=== PATIENT | male | born 1960 | race Caucasian/White ===

== ENCOUNTER 2018-05-13 06:39 | Inpatient (IN) ==
[2018-05-13] MEDS ORDERED: ALBUTEROL/IPRATROPIUM 3 ML NEB RESP TX STA ×2 (07:24→07:42)
[2018-05-13 07:36] LABS: Basophils # 0.1 10*3/uL (0.0-0.2); Basophils % 0.8 % (0.0-0.8); Eosinophils # 0.6 10*3/uL (0.0-0.87); Eosinophils % 5.2 % (0.00-10.9); Hematocrit 44.3 VOL% (42.0-52.0); Hemoglobin 14.5 GM/DL (14.0-18.0); Immature Granulocytes % 0.7 %; Immature Granulocytes Absolute 0.08 #; Lymphocytes # 0.5 10*3/uL (1.4-4.0); Lymphocytes % 4.5 % (21.2-54.2); Mean Corpuscular HGB Conc 32.7 GM/DL (32-36); Mean Corpuscular Hemoglobin 31 PG (27-34); Mean Corpuscular Volume 95.7 FL (87-102); Monocytes # 1.3 10*3/uL (0.11-0.8); Monocytes % 10.7 % (1.7-12.7); Neutrophils # 9.3 10*3/uL (1.4-7.4); Neutrophils % 78.1 % (38.7-73.9); Platelet Count 353 T/CUMM (130-400); Red Blood Count 4.63 MC/CUMM (3.8-5.5); Red Cell Distribution Width 12.9 % (9.3-17.3); White Blood Count 11.9 T/CUMM (4-12)
[2018-05-13] MEDS ORDERED: methylPREDNISolone SOD SUC 125 MG/2 ML VIAL IV STA (07:42)
[2018-05-13] MEDS ORDERED: LEVOFLOXACIN INJ 750 MG in PREMIX 1 EACH IV STA (07:42)
[2018-05-13] MEDS ORDERED: SODIUM CHLORIDE 0.9% 1,000 ML IV STA (07:42)
[2018-05-13 07:59] LABS: Lactic Acid 1.1 MMOL/L (0.4-2.0)
[2018-05-13 08:00] LABS: Albumin 4.1 G/DL (3.4-5.0); Bilirubin,Total 0.4 MG/DL (0.2-1.0); Calcium 8.8 MG/DL (8.5-10.1); Osmolality,Calculated 274.8 MOS/KG (273-304); Potassium 4.2 MMOL/L (3.5-5.1); Total Protein 8.7 G/DL (6.4-8.3)
[2018-05-13 09:20] LABS: ABG Base Excess -3.9 MMOL/L (-2.5-2.5); ABG HCO3 21.1 MMOL/L (20-26); ABG Oxygen Saturation 95.2 % (95-100); ABG PCO2 34.9 MM HG (35-48); ABG PH 7.377 (7.35-7.45); ABG PO2 75.7 MM HG (80-95); ABG TCO2 17.8 MMOL/L (23-27); Allen Test Positive
[2018-05-13] MEDS ORDERED: ONDANSETRON 4 MG/2 ML VIAL IV PRN (10:05)
[2018-05-13] MEDS ORDERED: ACETAMINOPHEN 325 MG TABLET PO PRN (10:05)
[2018-05-13] MEDS ORDERED: ALBUTEROL 2.5 MG/3 ML NEB RESP TX PRN (10:08)
[2018-05-13] MEDS: ENOXAPARIN 40 MG/0.4 ML SYRINGE SUBCUT SCH (10:49)
[2018-05-13 12:42] LABS: Eosinophils 4 % (0-10); Lymphocytes 4 % (20-55); Segmented Neutrophils 83 % (50-85); Total Cells Counted 100
[2018-05-13 12:43] LABS: Platelet Estimate Adequate
[2018-05-13] MEDS: ALBUTEROL/IPRATROPIUM 3 ML NEB RESP TX SCH ×2 (13:00→19:11)
[2018-05-13] MEDS: SODIUM CHLORIDE 0.9% 1,000 ML IV SCH (14:58)
[2018-05-13] MEDS: NICOTINE 21 MG/24 HR PATCH TRANSDERM SCH (14:58)
[2018-05-14] MEDS: ALBUTEROL/IPRATROPIUM 3 ML NEB RESP TX SCH ×4 (00:02→20:11)
[2018-05-14] MEDS: SODIUM CHLORIDE 0.9% 1,000 ML IV SCH ×2 (03:52→22:38)
[2018-05-14 05:06] LABS: Basophils % 0.2 % (0.0-0.8); Eosinophils % 0.1 % (0.00-10.9); Hematocrit 37.6 VOL% (42.0-52.0); Hemoglobin 11.8 GM/DL (14.0-18.0); Immature Granulocytes % 0.7 %; Immature Granulocytes Absolute 0.08 #; Lymphocytes # 0.9 10*3/uL (1.4-4.0); Lymphocytes % 7.1 % (21.2-54.2); Mean Corpuscular HGB Conc 31.4 GM/DL (32-36); Mean Corpuscular Hemoglobin 31 PG (27-34); Mean Corpuscular Volume 97.7 FL (87-102); Mean Platelet Volume 9.2 FL (9.6-12.0); Monocytes # 1.1 10*3/uL (0.11-0.8); Monocytes % 8.8 % (1.7-12.7); Neutrophils # 9.9 10*3/uL (1.4-7.4); Neutrophils % 83.1 % (38.7-73.9); Platelet Count 294 T/CUMM (130-400); Red Blood Count 3.85 MC/CUMM (3.8-5.5); Red Cell Distribution Width 12.9 % (9.3-17.3); White Blood Count 11.9 T/CUMM (4-12)
[2018-05-14 05:45] LABS: Calcium 8.7 MG/DL (8.5-10.1); Potassium 4.2 MMOL/L (3.5-5.1); Thyroid Stimulating Hormone 0.418 uIU/ml (0.358-3.74)
[2018-05-14 06:07] LABS: Folate 12.6 NG/ML (5.4-24.0)
[2018-05-14] MEDS: NICOTINE 21 MG/24 HR PATCH TRANSDERM SCH (09:15)
[2018-05-14] MEDS: PANTOPRAZOLE 40 MG TABLET PO SCH (09:16)
[2018-05-14] MEDS: MULTIVITAMIN (CENTRUM) TABLET PO SCH (09:16)
[2018-05-14] MEDS: LEVOFLOXACIN INJ 750 MG in PREMIX 1 EACH IV SCH (09:16)
[2018-05-14] MEDS: ENOXAPARIN 40 MG/0.4 ML SYRINGE SUBCUT SCH (09:16)
[2018-05-14] MEDS: FOLIC ACID 1 MG TABLET PO SCH (09:16)
[2018-05-14] MEDS: THIAMINE 100 MG TABLET PO SCH (09:16)
[2018-05-14] MEDS: LORazepam 2 MG/1 ML VIAL IV PRN ×2 (09:25→14:17)
[2018-05-15] MEDS: ALBUTEROL/IPRATROPIUM 3 ML NEB RESP TX SCH ×4 (00:53→19:05)
[2018-05-15 03:59] LABS: Basophils # 0.1 10*3/uL (0.0-0.2); Basophils % 0.8 % (0.0-0.8); Eosinophils # 0.4 10*3/uL (0.0-0.87); Eosinophils % 5.6 % (0.00-10.9); Hematocrit 36.9 VOL% (42.0-52.0); Hemoglobin 11.9 GM/DL (14.0-18.0); Immature Granulocytes % 0.7 %; Immature Granulocytes Absolute 0.05 #; Lymphocytes # 2.1 10*3/uL (1.4-4.0); Lymphocytes % 29.2 % (21.2-54.2); Mean Corpuscular HGB Conc 32.2 GM/DL (32-36); Mean Corpuscular Hemoglobin 32 PG (27-34); Mean Corpuscular Volume 97.9 FL (87-102); Monocytes # 0.5 10*3/uL (0.11-0.8); Monocytes % 7.4 % (1.7-12.7); Neutrophils # 4.1 10*3/uL (1.4-7.4); Neutrophils % 56.3 % (38.7-73.9); Platelet Count 243 T/CUMM (130-400); Red Blood Count 3.77 MC/CUMM (3.8-5.5); Red Cell Distribution Width 13.2 % (9.3-17.3); White Blood Count 7.3 T/CUMM (4-12)
[2018-05-15 04:28] LABS: Calcium 8.1 MG/DL (8.5-10.1); Osmolality,Calculated 292.4 MOS/KG (273-304); Potassium 3.9 MMOL/L (3.5-5.1)
[2018-05-15] MEDS ORDERED: SODIUM CHLORIDE 0.45% 1,000 ML IV SCH (08:00)
[2018-05-15] MEDS: SODIUM CHLORIDE 0.9% 1,000 ML IV SCH (08:01)
[2018-05-15] MEDS: MULTIVITAMIN (CENTRUM) TABLET PO SCH (08:29)
[2018-05-15] MEDS: PANTOPRAZOLE 40 MG TABLET PO SCH (08:29)
[2018-05-15] MEDS: NICOTINE 21 MG/24 HR PATCH TRANSDERM SCH (08:30)
[2018-05-15] MEDS: THIAMINE 100 MG TABLET PO SCH (08:30)
[2018-05-15] MEDS: LEVOFLOXACIN INJ 750 MG in PREMIX 1 EACH IV SCH (08:30)
[2018-05-15] MEDS: ENOXAPARIN 40 MG/0.4 ML SYRINGE SUBCUT SCH (08:30)
[2018-05-15] MEDS: FOLIC ACID 1 MG TABLET PO SCH (08:30)
[2018-05-15] MEDS: LORazepam 2 MG/1 ML VIAL IV PRN ×2 (10:07→16:54)
[2018-05-15] MEDS: methylPREDNISolone SOD SUC 40 MG/1 ML VIAL IV SCH ×2 (10:12→16:47)
[2018-05-15] MEDS ORDERED: FLUCONAZOLE 100 MG TABLET PO SCH (14:30)
[2018-05-16] MEDS: ALBUTEROL/IPRATROPIUM 3 ML NEB RESP TX SCH ×3 (00:49→13:38)
[2018-05-16] MEDS: methylPREDNISolone SOD SUC 40 MG/1 ML VIAL IV SCH ×2 (01:49→08:48)
[2018-05-16] MEDS: MULTIVITAMIN (CENTRUM) TABLET PO SCH (08:48)
[2018-05-16] MEDS: THIAMINE 100 MG TABLET PO SCH (08:49)
[2018-05-16] MEDS: ENOXAPARIN 40 MG/0.4 ML SYRINGE SUBCUT SCH (08:49)
[2018-05-16] MEDS: FOLIC ACID 1 MG TABLET PO SCH (08:49)
[2018-05-16] MEDS: NICOTINE 21 MG/24 HR PATCH TRANSDERM SCH (08:49)
[2018-05-16] MEDS: PANTOPRAZOLE 40 MG TABLET PO SCH (08:49)
[2018-05-16] MEDS: LEVOFLOXACIN INJ 750 MG in PREMIX 1 EACH IV SCH (08:50)
[2018-05-16] MEDS: LORazepam 2 MG/1 ML VIAL IV PRN (09:01)
[2018-05-16 17:10] VITALS: BP 131/63
[2018-05-17] MEDS ORDERED: LEVOFLOXACIN 500 MG TABLET PO ONE (09:00)
== END 2018-05-16 17:10 | DRG 191 ==
LOC: N.ED 06:39 → N.EDINP 06:39 → N.2E 11:37
PROVIDERS: ADMIT Internal Medicine; ATTEND Internal Medicine